=== PATIENT | male | born 1950 | race Caucasian/White ===

== ENCOUNTER 2018-09-17 07:48 | Emergency (ER) | payer MEDICAID ==
[~2018-09-17] VITALS: Ht 167.6 cm; Wt 94.0 kg
[2018-09-17 09:28] VITALS: BP 149/67
== END 2018-09-17 09:34 | disposition home or self-care (01) ==
LOC: ER 08:11
DX: R05 Cough (principal); F17.200 Nicotine dependence, unspecified, uncomplicated; F31.9 Bipolar disorder, unspecified
CPT/HCPCS: 71045; 99283

== ENCOUNTER 2019-07-20 12:33 | Emergency (ER) | payer MEDICAID ==
[~2019-07-20] VITALS: Ht 167.6 cm; Wt 98.0 kg
[2019-07-20] MEDS ORDERED: ACETAMINOPHEN 325MG TABLET PO ONE (14:15)
[2019-07-20 15:38] VITALS: BP 153/70
== END 2019-07-20 15:47 | disposition home or self-care (01) ==
LOC: ER 12:33
DX: R07.81 Pleurodynia (principal); F31.9 Bipolar disorder, unspecified
CPT/HCPCS: 71101; 99283

== ENCOUNTER 2020-03-20 09:32 | Emergency (ER) | payer MEDICAID ==
[~2020-03-20] VITALS: Ht 167.6 cm; Wt 90.0 kg
[2020-03-20 09:38] VITALS: BP 109/49
[2020-03-20] MEDS ORDERED: PREDNISONE 20MG TABLET PO ONE (12:00)
== END 2020-03-20 12:50 | disposition home or self-care (01) ==
LOC: ER 09:32
DX: Z03.818 Encounter for observation for suspected exposure to other biological agents ruled out (principal); J44.1 Chronic obstructive pulmonary disease with (acute) exacerbation; Z86.59 Personal history of other mental and behavioral disorders
CPT/HCPCS: 71045; 99284; C9803; J7512; U0003

== ENCOUNTER 2021-08-02 03:25 | Emergency (ER) | payer MEDICAID ==
[~2021-08-02] VITALS: Ht 162.6 cm; Wt 88.0 kg
[2021-08-02 03:29] VITALS: BP 126/66
[2021-08-02] MEDS ORDERED: XLV MT (04:29)
== END 2021-08-02 04:31 | disposition left against medical advice (07) ==
LOC: ER 03:56
DX: K12.0 Recurrent oral aphthae (principal); J44.9 Chronic obstructive pulmonary disease, unspecified
CPT/HCPCS: 99281

== ENCOUNTER 2021-08-18 07:49 | Emergency (ER) | payer MEDICAID ==
[~2021-08-18] VITALS: Ht 167.6 cm; Wt 87.4 kg
[~2021-08-18 07:49] MED LIST: XLV MT
[2021-08-18 07:53] VITALS: BP 162/71
== END 2021-08-18 08:29 | disposition home or self-care (01) ==
LOC: ER 08:09
DX: J39.2 Other diseases of pharynx (principal); G61.0 Guillain-Barre syndrome; J44.9 Chronic obstructive pulmonary disease, unspecified; R03.0 Elevated blood-pressure reading, without diagnosis of hypertension
CPT/HCPCS: 99281

== ENCOUNTER 2023-05-14 08:19 | Emergency (ER) | payer MEDICAID ==
[~2023-05-14] VITALS: Ht 165.1 cm; Wt 72.0 kg
[2023-05-14 08:32] VITALS: BP 161/79; PULSE 66; RESP 20; O2SAT 97
[2023-05-14 09:00] VITALS: TEMP 98.1
[2023-05-14] MEDS ORDERED: ACETAMINOPHEN 325MG TABLET PO ONE (09:00)
== END 2023-05-14 11:03 | disposition left against medical advice (07) ==
LOC: ER 08:19
DX: M54.2 Cervicalgia (principal); R51.9 Headache, unspecified
CPT/HCPCS: 99282